=== PATIENT | female | born 1975 ===

== ENCOUNTER 2016-09-30 00:09 | Emergency (ER) | payer OTHER ==
[2016-09-30 00:47] VITALS: BMI 34.2
[2016-09-30 01:13] LABS: SQUAMOUS EPITHIAL 13 /hpf (0-5); URINE BACTERIA OCC (<OCC); URINE BILIRUBIN NEGATIVE (NEGATIVE); URINE CALCIUM OXALATE CRYSTALS OCC /hpf (<OCC); URINE CLARITY CLOUDY (Clear); URINE COLOR AMBER (YELLOW); URINE GLUCOSE (UA) NEG (Normal); URINE LEUKOCYTE ESTERASE NEG Leu/uL (Negative); URINE NITRATE NEGATIVE (NEGATIVE); URINE PROTEIN 30 mg/dL (NEGATIVE)
[2016-09-30 01:15] LABS: URINE BLOOD SMALL (NEGATIVE)
--- NOTE | 2016-09-30 01:25 | OBHP ---
Datetime: 09/30/2016 00:45 IP Adm Impression: , intrauterine ; No Active Labor; Intact Membranes IP Admit Plan: Observation/Evaluation Admit Comment, IP Provider: 36yo IUP at 36w (EDC Sept 2 ) C/S x 3 c/o lower abd pressure for 2-3d midline non-radiating; diarrhea tonight - described as loose for 2d; No SROM; no VB. PNC: Dr Laureano CP POBGYNH: C/S x 3; spont abx2 PMH: GDMA2 (admitited to [facility] during preg); Thyroid condition Meds: Insulin/Levothyroxine PSH: C/S x 3 NKA PSoH: Denies smoking, ETOH or drugs - A: IUP at 36w C/S x 3 Threateneed PTL/diarrhea/?UTI PLAN discussed with Dr Johnson - check UA Pelvic Type - PN: Adequate Extremities - PN: Normal Abdomen - PN: Normal Back - PN: Normal Breast - PN: Not Done Lungs - PN: Normal Heart - PN: Normal Thyroid - PN: Normal Neurologic - PN: Normal HEENT - PN: Normal General - PN: Normal Presentation-Admit: Vertex IP Fetus A Comments: Sono cephalic FHR - Baseline A Provider: 150 Membranes, Provider: Intact Comments, ACOG Physical Exam: ROS: General: no fatigue; no weakness HEENT: No LUCIO; no visual dist CV: No palpitations; no CP RESP: no SOB; no cough GI: no N/V/ + diarrhea : no F/U/D MS: no joint pain Pool Provider: Negative IP Hx Assessment: The History has been Reviewed and is Current EGA AdmitDate IP: 36.4 Vital Signs Provider: Reviewed; Within Normal Limits IP Chief Complaint: Other NICHD Variability Prov Fetus A: Moderate 6-25bpm NICHD Accel Fetus A IP Provider: 15X15 FHR Category Provider Fetus A: Category I NICHD Decel Fetus A IP Provider: None Dilatation, Provider: 0 Effacement, Provider: 0 Station, Provider: high Genitourinary Exam: Normal DTRs - PN: Normal
[2016-09-30 06:45] VITALS: RESP 18; TEMP 98
--- NOTE | 2016-09-30 07:29 | OBDCSUM ---
Datetime: 09/30/2016 01:48 Discharged to, Provider: Home Follow up at, Provider: Disch Instr Activity: Normal activity Disch Instr Diet: Restricted, specify Discharge Diet restrict Prov: DIABETIC DIET Discharge Diagnosis, Provider: False Labor - Undelivered Discharge Time: 09/30/2016 01:48 Follow up in weeks, Provider: 09/30/16 Disch Referrals: None Disch Activity Restrictions: No lifting Discharge Comment, Provider: UA negative nitrites/Leuko esterase
== END 2016-09-30 02:00 | disposition home or self-care (01) ==
LOC: H.EROB2 00:09
DX: O47.03 False labor before 37 completed weeks of gestation, third trimester (principal); Z3A.36 36 weeks gestation of pregnancy; Z87.59 Personal history of other complications of pregnancy, childbirth and the puerperium; O09.93 Supervision of high risk pregnancy, unspecified, third trimester; O24.419 Gestational diabetes mellitus in pregnancy, unspecified control; O99.283 Endocrine, nutritional and metabolic diseases complicating pregnancy, third trimester

== ENCOUNTER 2016-10-10 07:40 | Inpatient (IN) | payer OTHER ==
[2016-10-10] MEDS: Lactated Ringer's 1,000 ML IV SCH ×3 (08:15→22:30)
[2016-10-10 08:24] VITALS: BMI 36.3
--- NOTE | 2016-10-10 08:33 | OBHP ---
Datetime: 10/10/2016 08:22 IP Adm Impression: Term, intrauterine ; No Active Labor IP Admit Plan: Admit to unit; Initiate Section protocol Admit Comment, IP Provider: IUP at 38w Previous C/S x 3 lower abd pain this moring. no SROM ; no VB +FM POBH: PGYNH: denies STD PMH: Hypothyroid PSH: hysterosopcy C/S x3 Allergy: Cephalexin PsoH: denies smoking ETOH drugs care CP Dr Laureano GDMA2 (Insulin) A: IUP at 38w early labor Previous C/S x 3 PLAN: ADmit to L_D spoek wth Dr Laureano Labs: CBC, Type Screen, glucose Pelvic Type - PN: Adequate Extremities - PN: Normal Abdomen - PN: Normal Back - PN: Normal Breast - PN: Not Done Lungs - PN: Normal Heart - PN: Normal Thyroid - PN: Normal Neurologic - PN: Normal HEENT - PN: Normal General - PN: Normal FHR - Baseline A Provider: 150 Membranes, Provider: Intact Contraction Comments Provider: irritability Comments, ACOG Physical Exam: ROS: General: no weakness; no fatigue HEENT: no LUCIO; no visual dist CV: no palpitations; no no CP GI: no N/V no diarhea No epigastric pain; non radiating : no F/U/D MS: No joint pain Pool Provider: Negative IP Hx Assessment: The History has been Reviewed and is Current EGA AdmitDate IP: 38.0 IP Chief Complaint: Uterine contractions NICHD Variability Prov Fetus A: Moderate 6-25bpm NICHD Accel Fetus A IP Provider: 10X10 FHR Category Provider Fetus A: Category I NICHD Decel Fetus A IP Provider: None Dilatation, Provider: 1 Genitourinary Exam: Normal DTRs - PN: Normal
[2016-10-10 08:36] LABS: BASO % 0.2 % (0.0-2.0); EOS # 0.4 K/uL (0.0-0.7); EOS % 3.3 % (0.0-4.0); HEMATOCRIT 30.6 % (34.0-47.0); LYMPH # 2.4 K/uL (1.0-4.3); LYMPH % 20.2 % (20.0-40.0); MEAN CORPUSCULAR HEMOGLOBIN 22.4 pg (27.0-31.0); MEAN CORPUSCULAR HGB CONC 32.4 g/dL (33.0-37.0); MEAN PLATELET VOLUME 7.2 fl (7.2-11.7); MONO # 0.9 K/uL (0.0-0.8); MONO % 7.7 % (0.0-10.0); NEUT # 8.1 K/uL (1.8-7.0); NEUT % 68.6 % (50.0-75.0); NRBC % 0.3 % (0.0-0.0); RED CELL DISTRIBUTION WIDTH 17.3 % (11.5-14.5); WHITE BLOOD COUNT 11.9 K/uL (4.8-10.8)
[2016-10-10] MEDS ORDERED: Clindamycin 600 MG in Sodium Chloride 0.9% 100 ML IVPB STA (08:44)
[2016-10-10 08:47] LABS: BLOOD UREA NITROGEN 12 mg/dl (7-17); CARBON DIOXIDE 19 mmol/L (22-30); CHLORIDE 108 mmol/L (98-107); GFR AFRICAN-AMERICAN > 60; GLUCOSE,RANDOM 80 mg/dL (65-105); POTASSIUM 3.8 MMOL/L (3.6-5.0); SODIUM 137 mmol/l (132-148)
[2016-10-10 09:13] LABS: MEAN CELL VOLUME 69.3 fl (81.0-99.0)
[2016-10-10] MEDS ORDERED: Morphine 1 mg/ml preservative-free Inj(Duramorph) ONE (09:17)
[2016-10-10] MEDS ORDERED: Oxytocin 10 Units/ml Inj ONE (10:36)
--- NOTE | 2016-10-10 11:33 | OBADHP ---
Datetime: 10/10/2016 08:22 Admit Comment, IP Provider: IUP at 38w Previous C/S x 3 lower abd pain this moring. no SROM ; no VB +FM POBH: PGYNH: denies STD PMH: Hypothyroid PSH: hysterosopcy C/S x3 Allergy: Cephalexin PsoH: denies smoking ETOH drugs care CP Dr Laureano GDMA2 (Insulin) A: IUP at 38w early labor Previous C/S x 3 PLAN: ADmit to L_D spoek wth Dr Laureano Labs: CBC, Type Screen, glucose Pelvic Type - PN: Adequate Extremities - PN: Normal Abdomen - PN: Normal Back - PN: Normal Breast - PN: Not Done Lungs - PN: Normal Heart - PN: Normal Thyroid - PN: Normal Neurologic - PN: Normal HEENT - PN: Normal General - PN: Normal Presentation-Admit: Vertex FHR - Baseline A Provider: 150 Membranes, Provider: Intact Contraction Comments Provider: irritability Comments, ACOG Physical Exam: ROS: General: no weakness; no fatigue HEENT: no LUCIO; no visual dist CV: no palpitations; no no CP GI: no N/V no diarhea No epigastric pain; non radiating : no F/U/D MS: No joint pain Gestation - Est Wks by US: 38.0 Pool Provider: Negative IP Hx Assessment: The History has been Reviewed and is Current IP Chief Complaint: Uterine contractions NICHD Variability Prov Fetus A: Moderate 6-25bpm NICHD Accel Fetus A IP Provider: 10X10 FHR Category Provider Fetus A: Category I NICHD Decel Fetus A IP Provider: None Dilatation, Provider: 1 Genitourinary Exam: Normal DTRs - PN: Normal EGA AdmitDate IP: 38.0 IP Adm Impression: Term, intrauterine ; No Active Labor IP Admit Plan: Admit to unit; Initiate Section protocol Datetime: 09/30/2016 00:45 IP Fetus A Comments: Sono cephalic Vital Signs Provider: Reviewed; Within Normal Limits Effacement, Provider: 0 Station, Provider: high
[2016-10-10] MEDS ORDERED: Oxycodone/Acetaminophen 5/325 mg Tab PO PRN ×3 (11:36→14:58)
[2016-10-10] MEDS ORDERED: Bisacodyl 5mg EC Tab PO PRN ×2 (11:36→14:58)
--- NOTE | 2016-10-10 11:39 | OBDS ---
DELIVERY PERSONNEL Delivery Doctor: Oxana Laureano MD Scheduler Conveyor: Keyona Singletary RN Anesthesiologist: Jose CR MATERNAL INFORMATION Delivery Anesthesia: Spinal Medications in Delivery: pitocin 30 units in 500 cc LR infused. Estimated Blood Loss (ml): 800ml Placenta Cultured: No Maternal Complications: None Provider Comments: delivery of live baby girl 9/9 clear fluid cord with 3 vessels placentn int act tubes and ovaries wnl small posterior fibroid ebl 800ml LABOR SUMMARY EDC: 10/24/2016 00:00 No. Babies in Womb: 1 Attempted: No Labor Anesthesia: None LABOR INFORMATION Reason for Induction: Not Applicable Oxytocin: N/A Group B Beta Strep: Negative Antibiotics # of Doses: 0 Antibiotics Time of Last Dose: 0 Steroids Given: None Reason Steroids Not Administered: Not Applicable MEMBRANES Membranes Rupture Method: Artificial Rupture of Membranes: 10/10/2016 10:06 Length of Rupture (hrs): 0.00 Amniotic Fluid Color: Clear Amniotic Fluid Amount: Moderate Amniotic Fluid Odor: Normal STAGES OF LABOR Stage 3 hrs: 0 Stage 3 min: 2 VAGINAL DELIVERY Episiotomy: None Laceration Extension: N/A CSECTION DELIVERY Primary Indication: Repeat Elective Secondary Indication: > 2 Previous CSections CSection Urgency: Elective CSection Incidence: Repeat Labor: Labor Elective: Elective CSection Incision: Lower Uterine Transverse BABY A INFORMATION Infant Delivery Date/Time: 10/10/2016 10:06 Method of Delivery: Born in Route : No : N/A Forceps: N/A Vacuum Extraction: N/A Shoulder Dystocia : No SHOULDER DYSTOCIA BABY A Delivery Date/Time: 10/10/2016 10:06 PRESENTATION/POSITION BABY A Presentation: Cephalic Cephalic Presentation: Vertex Breech Presentation: N/A PLACENTA INFORMATION BABY A Placenta Delivery Time : 10/10/2016 10:08 Placenta Method of Delivery: Manual Removal Placenta Status: Delivered SCORES BABY A Heart Rate 1 min: >100 bpm Resp Effort 1 min: Good Cry Reflex Irritability 1 min: Cough or Sneeze or Pulls Away Muscle Tone 1 min: Active Motion Color 1 min: Body [place], Extremities Blue SCORE 1 MIN: 9 Heart Rate 5 min: >100 bpm Resp Effort 5 min: Good Cry Reflex Irritability 5 min: Cough or Sneeze or Pulls Away Muscle Tone 5 min: Active Motion Color 5 min: Body [place], Extremities Blue SCORE 5 MIN: 9 INFANT INFORMATION BABY A Gestational Age at Delivery: 38.0 Gestational Status: Term Infant Outcome : Liveborn Condition : Stable Infant Sex: Female IDENTIFICATION/MEDS BABY A ID Band Number: [id number] ID Band Location: Left Leg; Left Arm WEIGHT/LENGTH BABY A Infant Birthweight (gms): 3465 Weight (lb): 7 Weight (oz): 10 CORD INFORMATION BABY A No. Cord Vessels: 3 Nuchal Cord : N/A Cord Blood Taken: Yes Suction: Mouth; Nose
[2016-10-10] MEDS ORDERED: DiphenhydrAMINE 50 mg/ml Inj IVP PRN ×2 (11:48→14:58)
[2016-10-10] MEDS: Oxycodone/Acetaminophen 5/325 mg Tab PO PRN (22:41)
[2016-10-10] MEDS: Dextrose 5%/Lactated Ringer's 1,000 ML IV SCH (23:50)
[2016-10-11 09:22] LABS: HEMATOCRIT 25.9 % (34.0-47.0); MEAN CELL VOLUME 69.6 fl (81.0-99.0); MEAN CORPUSCULAR HEMOGLOBIN 22.6 pg (27.0-31.0); MEAN CORPUSCULAR HGB CONC 32.5 g/dL (33.0-37.0); RED CELL DISTRIBUTION WIDTH 17.3 % (11.5-14.5); WHITE BLOOD COUNT 12.7 K/uL (4.8-10.8)
[2016-10-11] MEDS: Oxycodone/Acetaminophen 5/325 mg Tab PO PRN ×2 (09:28→22:15)
[2016-10-11] MEDS: Lactated Ringer's 1,000 ML IV SCH (09:43)
--- NOTE | 2016-10-11 11:48 | OBPPN ---
Datetime: 10/11/2016 11:43 PP Pain Prov: Within normal limits PP Pain Prov comment: No SOB chest pains or leg pains PP Nausea Prov: Denies PP Flatus Prov: No PP BM Prov: No PP Nausea Prov comment: voiding well PP Breasts Prov: Normal PP Lungs Prov: Normal PP Abdomen/Uterus Prov: Abnormal PP Lochia Prov: Normal PP Vulva/Perineum Prov: Normal PP CVA Tenderness Prov: Normal PP Extremities Prov: Normal PP C/S Incision Prov: Normal PP Progress Prov: Not Applicable PP Comments Phys Exam Prov: breast not engorged. Abd soft not distended dressing in place no sign o f active bleeding, Ext no calf ternderness PP Impression Prov: Normal progression PP Plan Prov: Continue present management PP Progress Note Prov: FBS wnl this am, continue checking as ordered. Continue PP care, cbc stable but anemia will start on po iron IP PP Procedures: None Vital Signs Provider PP: Reviewed
[2016-10-11] MEDS: Simethicone 80 mg Chewtab PO PRN ×2 (18:36→22:15)
[2016-10-12] MEDS: Simethicone 80 mg Chewtab PO PRN ×2 (05:48→10:03)
--- NOTE | 2016-10-12 08:17 | OBPPN ---
Datetime: 10/12/2016 08:12 PP Pain Prov: Within normal limits PP Nausea Prov: Denies PP Flatus Prov: Yes PP BM Prov: No PP Breasts Prov: Normal PP Heart Prov: Normal PP Lungs Prov: Normal PP Abdomen/Uterus Prov: Normal PP Lochia Prov: Normal PP Vulva/Perineum Prov: Normal PP CVA Tenderness Prov: Normal PP Extremities Prov: Normal PP C/S Incision Prov: Normal PP Progress Prov: Normal PP Impression Prov: Normal progression PP Plan Prov: Continue present management PP Progress Note Prov: stable pod2 continue present care may shower dc iv IP PP Procedures: None Vital Signs Provider PP: Reviewed; Within Normal Limits
[2016-10-12] MEDS: Lactated Ringer's 1,000 ML IV SCH (14:00)
[2016-10-12] MEDS: Oxycodone/Acetaminophen 5/325 mg Tab PO PRN ×2 (14:26→20:37)
[2016-10-12] MEDS: Dextrose 5%/Lactated Ringer's 1,000 ML IV SCH (15:30)
[2016-10-13] MEDS: Oxycodone/Acetaminophen 5/325 mg Tab PO PRN (00:43)
[2016-10-13] MEDS: Simethicone 80 mg Chewtab PO PRN ×2 (06:53→12:54)
--- NOTE | 2016-10-13 07:58 | OBPPN ---
Datetime: 10/13/2016 07:55 PP Pain Prov: Within normal limits PP Nausea Prov: Denies PP Flatus Prov: Yes PP BM Prov: Yes PP Breasts Prov: Normal PP Heart Prov: Normal PP Lungs Prov: Normal PP Abdomen/Uterus Prov: Normal PP Lochia Prov: Normal PP Vulva/Perineum Prov: Normal PP CVA Tenderness Prov: Normal PP Extremities Prov: Normal PP C/S Incision Prov: Normal PP Progress Prov: Normal PP Impression Prov: Normal progression PP Plan Prov: Continue present management PP Progress Note Prov: stable pod3 continue present care IP PP Procedures: None Vital Signs Provider PP: Reviewed; Within Normal Limits
--- NOTE | 2016-10-13 08:02 | OBDCSUM ---
Datetime: 10/13/2016 07:58 Discharged to, Provider: Home Follow up at, Provider: Disch Instr Activity: Bedrest; May be up to bathroom; May be up for meals; May Shower Disch Instr Diet: Regular Discharge Instructions, Provider: Specific instructions as noted Discharge Diagnosis, Provider: Term Delivered Discharge Time: 10/13/2016 07:58 Follow up in weeks, Provider: 1week Disch Referrals: None Disch Activity Restrictions: No exercising; No lifting; No driving; Minimize walking; Minimize stair -climbing; No sexual activity; Nothing in vagina - [place], tampons, douche Discharge Comment, Provider: rasta home today rto 1week call office if any problems Contraception after Delivery: Undecided
[2016-10-13 20:54] VITALS: BP 130/75; PULSE 67; RESP 20; TEMP 98.5; O2SAT 95
--- NOTE | 2016-10-14 23:06 | OP ---
PROCEDURE DATE: 10/10/2016 PREOPERATIVE DIAGNOSES: Term , previous section, third delivery, also gestational diabetes, on medication. POSTOPERATIVE DIAGNOSES: Term , previous section, third delivery, also gestational diabetes, on medication. SURGEON: Dr. Laureano. FRANCHISE DEVELOPMENT MANAGER: Dr. Sanches. ANESTHESIA ADMINISTERED BY: Dr. Garcia. ANESTHESIA: Spinal anesthesia. PROCEDURE: Repeat low transverse section. FINDINGS: Term size uterus, live baby girl, Apgars 9 and 9, clear fluid, cord with 3 vessels. Placenta, anterior tubes and ovaries within normal limits. ESTIMATED BLOOD LOSS: 800 mL. DESCRIPTION OF PROCEDURE: With the patient in the supine position, spinal anesthesia, the patient was prepped and draped in the usual sterile manner. Pfannenstiel incision was made and taken down to the fascia in layers, fascia incised and extended bilaterally. Dr. Sanches assisted in preparation for the surgery and also assisted in opening the fascia. He is doing on his side and I am doing my side. Fascia was then from the muscle by sharp and blunt dissection, after which the peritoneum was grasped, incised and extended vertically. Upon entering the abdominopelvic cavity, pericolic gutters were packed with wet laps, pushing the bowel away from the operative field. Bladder flap was established and then low transverse incision was made in the uterus going upwards. Baby was removed without any complication and given to water service supervisor who resuscitated. After this was done, the placenta was removed intact. The uterus was exteriorized and cleaned. After this was done, the uterus was closed in 2 layers using 1 Vicryl running interlocking stitch maintaining hemostasis. After this was done, pelvic cavity was irrigated until clean. The wet laps were removed from the pericolic gutters. The uterus was repositioned. The peritoneum was then grasped and closed with 1 Vicryl. Muscles were approximated with 1 Vicryl. The fascia was then closed with 1 Vicryl running interlocking stitch starting at each end and finished in the midline, Dr. Sanches doing his half and me doing my half. After this was done, a subcutaneous layer was closed with 2-0 plain and the skin was closed with bunny. Dr. Sanches was present from the beginning of the surgery until the last staple was applied. The patient tolerated the procedure well and was in satisfactory condition on the way to the recovery room. Enoc Laureano MD
== END 2016-10-13 16:00 | disposition home or self-care (01) | DRG 766 ==
LOC: H.EROB2 07:40 → H.L&D 07:47 → H.EROB2 08:18 → H.L&D 08:19 → H.OB/GYN 15:03
PROVIDERS: ADMIT Specialist; ATTEND Specialist
PROC: 10D00Z1 Extraction of Products of Conception, Low, Open Approach (ICD-10-PCS; principal; 2016-10-10)
PROC: 4A1HXCZ Monitoring of Products of Conception, Cardiac Rate, External Approach (ICD-10-PCS; 2016-10-10)
DX: O34.211 Maternal care for low transverse scar from previous cesarean delivery (principal); O99.02 Anemia complicating childbirth; Z37.0 Single live birth; O90.81 Anemia of the puerperium; O99.284 Endocrine, nutritional and metabolic diseases complicating childbirth; Z3A.38 38 weeks gestation of pregnancy; Z3A.49 Greater than 42 weeks gestation of pregnancy